=== PATIENT | male | born 1995 | race African-American/Black ===

== ENCOUNTER 2016-09-23 11:49 | Emergency (ER) | payer OTHER ==
[2016-09-23 12:15] VITALS: BP 152/81; PULSE 76; TEMP 98.7; BMI 22.9
[2016-09-23] MEDS ORDERED: OXYCODONE HCL 5 MG TABLET PO ONE (12:22)
[2016-09-23] MEDS ORDERED: CYCLOBENZAPRINE 10 MG TAB PO ONE (12:22)
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
== END 2016-09-23 13:47 | disposition home or self-care (01) ==
LOC: ED 11:49 → EDMC 13:47
DX: S09.8XXA Other specified injuries of head, initial encounter (principal); S16.1XXA Strain of muscle, fascia and tendon at neck level, initial encounter; V49.40XA Driver injured in collision with unspecified motor vehicles in traffic accident, initial encounter; Y93.9 Activity, unspecified; Y92.410 Unspecified street and highway as the place of occurrence of the external cause
CPT/HCPCS: 70450; 72125; 99283; J3490